=== PATIENT | female | born 1945 | race Caucasian/White ===

== ENCOUNTER → 2016-11-01 | Outpatient (CLI) | payer BC ==
--- NOTE | 2016-11-01 15:16 | DIAGNOSTIC IMAGING REPORT ---
Brain MRI WITHOUT CONTRAST HISTORY: R41.89 Cognitive [id number] TECHNIQUE: Multiplanar multisequence MRI of the brain was performed without the use of contrast. COMPARISON STUDY: Head CT 04/20/2016. FINDINGS: There is no hematoma, midline shift, or acute infarct. The paranasal sinuses are clear. The mastoid or cells are clear. The ventricles and sulci demonstrate mild age-related involutional changes. There are few foci of T2 hyperintensity seen within the periventricular and subcortical white matter which are nonspecific but suggestive of minimal microvascular ischemic changes. The major vascular flow voids at the skull base are well-maintained. Best seen on axial image 14 there is a 1.2 cm extra-axial left frontal mass. This was partially calcified on the prior head CT. Therefore, this likely represents a meningioma. IMPRESSION: 1. No acute intracranial abnormality. 2. A 1.2 cm extra-axial left frontal mass which was partially calcified in the prior head CT. Therefore, this likely represents a meningioma. Electronically signed by: Chas Mario M.D. 11/01/2016 3:15 PM Dictated Date/Time: 11/01/2016 3:06 PM
== END | disposition home or self-care (01) ==
LOC: C.MRIBC 13:58
PROVIDERS: ATTEND Psychiatry & Neurology Neurology
DX: R41.89 Other symptoms and signs involving cognitive functions and awareness (principal)

== ENCOUNTER → 2017-02-21 | Outpatient (CLI) | payer BC | END | disposition home or self-care (01) | LOC: C.PATHSPEC 17:11 | PROVIDERS: ATTEND Plastic Surgery | DX: C44.321 Squamous cell carcinoma of skin of nose (principal) ==